=== PATIENT | male | born 1950 | race Caucasian/White ===

== ENCOUNTER → 2019-01-04 09:07 | Outpatient (CLI) | payer MEDICARE ==
--- NOTE | ~2019-01-04 | ST ---
PATIENT:GIGI MCCAULEY MEDICAL RECORD: [id number] SEX: M LOCATION:[facility] ORDER #: ADMISSION DATE: 01/04/19 AGE OF PATIENT: 68 REFERRING PHYSICIAN: INTERPRETING PHYSICIAN: GYPSY BRAVO MD DATE OF SERVICE: 01/04/2019 PROCEDURE: Nuclear stress test. INDICATION: Angina, coronary artery disease, hypertension, and hyperlipidemia. He was exercised on standard Louie protocol for 5 minutes achieving greater than 85% max target heart rate response with 27 mCi of sestamibi injected at peak stress, 9 mCi were used previously for rest images. FINDINGS: Gated SPECT reveals preserved ejection fraction at 66% with decreased thickening and brightening throughout the inferior segments. SPECT imaging Cardiolite was used as myocardial fusion agent. There is a fixed fusion defect inferiorly. This includes the basal, mid, apical inferior segments. There is no reversibility. The remaining segments are with homogeneous uptake at rest and stress. OVERALL IMPRESSION: This is a minimally abnormal nuclear stress test showing only mixed perfusion defect inferiorly. No reversible ischemia and preserved ejection fraction greater than 60%. Continue medical management of the coronary artery disease and cardiac risk factors. TRANSINT:[id number] Voice Confirmation ID: [id number] DOCUMENT ID: [id number] GYPSY BRAVO MD CC: CAROLYN THOMSON [id number] DICTATION DATE: 01/05/19 1140 MARBLE FINISHER: 01/06/19 0022 DEP CLI 01/04/19 [facility] [address] [id number]
--- NOTE | 2019-01-05 14:00 | EC ---
PATIENT:GIGI MCCAULEY DATE OF SERVICE: 01/04/19 SEX: M MEDICAL RECORD: [id number] DATE OF : 50 [facility] AGE OF PATIENT: 68 ADMISSION DATE: 01/04/19 REFERRING PHYSICIAN: INTERPRETING PHYSICIAN: EDMUND CAGLE MD ECHOCARDIOGRAM REPORT ECHO CHARGES 4 ECHO COMPLETE Date: 01/04/19 CLINICAL DIAGNOSIS: CAD/ANGINA HX HTN ECHOCARDIOGRAPHIC MEASUREMENTS (adult normal given) AC root (d.<3.7cm) 3.5 cm LV Septum d (<1.2 cm> 1.3 cm Valve Excursion 1.8 cm LV Septum (systole) 1.8 cm Left Atria (s.<4.0cm> 4.2 cm LVPW d(<1.2cm) 1.7 cm RV (d.<2.3cm) 4.0 cm LVPW (sytole) 1.8 cm LV diastole(<5.6CM) 4.8 cm MV E-F(>70mm/sec) cm LV systole 3.5 cm LVOT Diameter 1.9 cm MV exc.(>10mm) 2.4 cm Est.ejection fraction (50-75%) % DOPPLER: LVIT cm/sec A 72.0 cm/sec E 54.0 cm/sec LA cm/sec RVSP 19 mmHg LVOT 114 cm/sec AOP1/2T m/s Asc. Ao 255 cm/sec RVOT 88 cm/sec RA cm/sec PA 118 cm/sec AV Gradient Peak 5.19 mmHg AV Mean 2.55 mmHg AV Area 2.2 cm MV Gradient Peak 3.14 mmHg MV Mean 1.79 mmHg MV Area cm COMMENTS: Page Technician: 2 GISEL REYES Telephone Assembler: 3 Dr. Olsen TAPE# PACS Pericardial Effusion N DATE OF SERVICE: Adequate 2D echo, color-flow spectral Doppler, and M-mode. Mild LVH. LV internal dimensions are normal. Wall motion is normal. EF is greater than 55%. Aortic valve is tricuspid. No evidence of stenosis by Doppler interrogation. Left atrium is minimally dilated at 4.2 cm. Mitral valve shows no prolapse. Mild MR. Right-sided chambers are grossly normal. Trace TR. ECHOCARDIOGRAM REPORT [id number] GIGI MCCAULEY TRANSINT:[id number] Voice Confirmation ID: [id number] DOCUMENT ID: [id number] EDMUND CAGLE MD at 1400 CC: [id number] DICTATION DATE: 01/05/19 1300 DATA TRANSCRIBER: 01/05/19 1344 DEP CLI 01/04/19 [id number] [place] [id number]
== END | disposition home or self-care (01) ==
LOC: D.HCCARDIO 09:07
PROVIDERS: ATTEND Internal Medicine Interventional Cardiology
DX: I25.119 Atherosclerotic heart disease of native coronary artery with unspecified angina pectoris (principal)

== ENCOUNTER → 2019-08-06 13:43 | Outpatient (CLI) | payer MEDICARE ==
--- NOTE | 2019-08-12 11:25 | EC ---
PATIENT:GIGI MCCAULEY DATE OF SERVICE: 08/06/19 SEX: M MEDICAL RECORD: [id number] DATE OF : 50 LOCATION:[facility] AGE OF PATIENT: 69 ADMISSION DATE: 08/06/19 REFERRING PHYSICIAN: INTERPRETING PHYSICIAN: EDMUND CAGLE MD ECHOCARDIOGRAM REPORT ECHO CHARGES 4 ECHO COMPLETE Date: 08/06/19 CLINICAL DIAGNOSIS: TACHYCARDIA/DYSPNEA/ ARRHYTHMIAS H/O CAD/HTN ECHOCARDIOGRAPHIC MEASUREMENTS (adult normal given) AC root (d.<3.7cm) 3.7 cm LV Septum d (<1.2 cm> 1.2 cm Valve Excursion 2.3 cm LV Septum (systole) 1.7 cm Left Atria (s.<4.0cm> 4.5 cm LVPW d(<1.2cm) 1.2 cm RV (d.<2.3cm) 2.8 cm LVPW (sytole) 1.8 cm LV diastole(<5.6CM) 4.9 cm MV E-F(>70mm/sec) cm LV systole 2.5 cm LVOT Diameter 2.1 cm MV exc.(>10mm) cm Est.ejection fraction (50-75%) % DOPPLER: LVIT cm/sec A 80.0 cm/sec E 69.0 cm/sec LA cm/sec RVSP 20.1 mmHg LVOT 114 cm/sec AOP1/2T m/s Asc. Ao 128 cm/sec RVOT 64.0 cm/sec RA cm/sec PA 137 cm/sec AV Gradient Peak 6.6 mmHg AV Mean 3.4 mmHg AV Area 2.5 cm MV Gradient Peak 3.8 mmHg MV Mean 1.7 mmHg MV Area cm COMMENTS: OP - HC Mechanical Handyman: 1 GEORGE MELANIA Supervisor Accounts Receivable: 3 Dr. Olsen TAPE# PACS Pericardial Effusion N DATE OF SERVICE: Adequate 2D echo, color flow imaging, spectral Doppler, and M-Mode Borderline LVH. LV internal dimensions are normal. Wall motion is normal. EF is greater than or equal to 55%. Aortic valve is tricuspid. No evidence of stenosis by Doppler interrogation. Left atrium is dilated at 4.5 cm. Mitral valve shows no prolapse. Mild MR. Right-sided chambers are grossly normal. Trace TR. ECHOCARDIOGRAM REPORT [id number] GIGI MCCAULEY TRANSINT:[id number] Voice Confirmation ID: [id number] DOCUMENT ID: [id number] EDMUND CAGLE MD at 1125 CC: [id number] DICTATION DATE: 08/10/19 0957 PLASTIC FRAME INSERTER: 08/10/19 1139 DEP CLI 08/06/19 [id number] [place] [place] [id number]
== END | disposition home or self-care (01) ==
LOC: D.HCCECHO 13:43
PROVIDERS: ATTEND Internal Medicine Interventional Cardiology
DX: I25.10 Atherosclerotic heart disease of native coronary artery without angina pectoris (principal)